=== PATIENT | male | born 2000 | race Caucasian/White ===

== ENCOUNTER 2020-03-22 11:33 | Emergency (ER) | payer OTHER ==
[~2020-03-22] VITALS: Ht 170.2 cm; Wt 88.7 kg
[2020-03-22] MEDS ORDERED: ALBUTEROL2.5 MG/0.1 INH (11:51)
[2020-03-22] MEDS ORDERED: FLEXERIL PO (13:16)
[2020-03-22] MEDS ORDERED: ONDANSETRON HCL4 M2 PO (13:16)
[2020-03-22 13:32] VITALS: BP 149/68
== END 2020-03-22 13:32 | disposition home or self-care (01) ==
LOC: M.ERS 11:33
DX: S16.1XXA Strain of muscle, fascia and tendon at neck level, initial encounter (principal); S09.90XA Unspecified injury of head, initial encounter; R42 Dizziness and giddiness; J45.909 Unspecified asthma, uncomplicated; L40.9 Psoriasis, unspecified; Z79.899 Other long term (current) drug therapy; W20.8XXA Other cause of strike by thrown, projected or falling object, initial encounter; Y93.89 Activity, other specified; Y92.69 Other specified industrial and construction area as the place of occurrence of the external cause; Y99.0 Civilian activity done for income or pay